=== PATIENT | male | born 1965 | race Caucasian/White ===

== ENCOUNTER 2019-09-06 19:57 | Emergency (ER) | payer MEDICAID ==
[~2019-09-06] VITALS: Ht 175.3 cm; Wt 90.7 kg
[2019-09-06 21:02] LABS: Basophils # (auto) 0.1 uL; Basophils % (auto) 0.6 % (0.0-2.0); Eosinophils # (auto) 0 uL; Eosinophils % (auto) 0.1 % (0.0-7.0); Hematocrit 43.9 % (41.0-53.0); Hemoglobin 15.2 g/dL (13.5-17.5); Lymphocytes # (auto) 2.2 uL; Lymphocytes % (auto) 15.5 % (10.0-50.0); Mean Corpuscular Hemoglobin 32.3 pg (28.0-32.0); Mean Corpuscular Hgb Conc. 34.7 g/dL (32.0-36.0); Mean Corpuscular Volume 93.1 fL (80.0-100.0); Monocytes % (auto) 7.3 % (0.0-12.0); Neutrophils % (auto) 76.5 % (37.0-80.0); Nucleated Red Blood Cells % 0.1 %; Platelet Count (auto) 244 10^3/uL (140-450); Red Blood Cells 4.72 10^6/uL (4.5-5.90); Red Cell Distribution Width 14.6 % (11.8-14.3); White Blood Cell 14.4 10^3/uL (4.4-10.8)
[2019-09-06 21:10] LABS: Calcium 8.7 mg/dL (8.5-10.1); Potassium 3.7 mmol/L (3.5-5.1)
[2019-09-06 21:12] LABS: Salicylate 8.6 mg/dL (2.8-20.0)
[2019-09-06 21:14] LABS: BUN/Creatinine Ratio 11.5; Bilirubin, Total 0.9 mg/dL (0.2-1.0); Total Protein 8.4 g/dL (6.4-8.2)
[2019-09-06 21:20] LABS: Acetaminophen < 2.0 ug/mL (10-30)
[2019-09-07] MEDS ORDERED: FURO1TAB33 PO (07:15)
[2019-09-07] MEDS ORDERED: BUDE0.5S IN (07:15)
[2019-09-07] MEDS ORDERED: BUDE0.253 IN (07:15)
[2019-09-07] MEDS ORDERED: TRAZ100T2 PO (07:15)
[2019-09-07] MEDS ORDERED: MET50T PO (07:15)
[2019-09-07] MEDS ORDERED: ASPI-231 PO (07:15)
[2019-09-07] MEDS ORDERED: GABA300C10 PO (08:06)
[2019-09-07 08:18] LABS: Urine Bacteria NONE SEEN /hpf (None Seen); Urine Blood Negative /uL (Negative); Urine Specific Gravity 1.007 (1.001-1.035); Urine WBC <1 /hpf (0 - 3)
[2019-09-07 08:38] LABS: Alcohol, Urine < 3.0 mg/dL (0-5); Amphetamine Screen, Urine NEGATIVE (NEGATIVE); Barbiturate Scree,Urine NEGATIVE (NEGATIVE); Benzodiazephine Screen, Urine NEGATIVE (NEGATIVE); Cannabinoid Screen, Urine NEGATIVE (NEGATIVE); Cocaine Screen, Urine NEGATIVE (NEGATIVE); Opiate Scree,Urine NEGATIVE (NEGATIVE); Phencyclidine Screen, Urine NEGATIVE (NEGATIVE)
[2019-09-07] MEDS ORDERED: METOPROLOL TARTRATE 50 MG TAB PO SCH (10:00)
[2019-09-07] MEDS ORDERED: FUROSEMIDE 20 MG TAB PO SCH (10:00)
[2019-09-07] MEDS ORDERED: ASPirin-EC 81 mg tab PO SCH (10:00)
[2019-09-07] MEDS ORDERED: GABAPENTIN 300 MG CAP PO SCH (14:00)
[2019-09-07] MEDS ORDERED: GABAPENTIN 300 MG CAP PO ONE (15:15)
[2019-09-07 18:11] VITALS: BP 114/62
== END 2019-09-07 18:35 | disposition short-term general hospital (02) ==
LOC: EDBD 19:57 → ER 20:03
DX: F32.9 Major depressive disorder, single episode, unspecified (principal); R45.851 Suicidal ideations; Z59.0 Homelessness; F17.210 Nicotine dependence, cigarettes, uncomplicated
CPT/HCPCS: 36415; 71045; 80053; 80307; 80320; 80329; 81001; 85025